=== PATIENT | female | born 1975 | race Caucasian/White ===

== ENCOUNTER 2017-06-14 09:22 | Emergency (ER) | payer MEDICAID ==
[2017-06-14 09:34] VITALS: BMI 25.6
[2017-06-14 09:40] VITALS: PULSE 78
[2017-06-14] MEDS ORDERED: Apap-Butalbital-Caffeine 325-50-40mg Tab PO STA (10:05)
--- NOTE | 2017-06-14 11:13 | CT ---
PROCEDURE: CT HEAD WITHOUT CONTRAST. HISTORY: PERSISTENT RIGHT SIDED HEADACHE COMPARISON: None available. TECHNIQUE: Axial computed tomography images were obtained through the head/brain without intravenous contrast. Radiation dose: Total exam DLP = 859.90 mGy-cm. This CT exam was performed using one or more of the following dose reduction techniques: Automated exposure control, adjustment of the mA and/or kV according to patient size, and/or use of iterative reconstruction technique. FINDINGS: HEMORRHAGE: No intracranial hemorrhage. BRAIN: No mass effect or edema. No atrophy or chronic microvascular ischemic changes. VENTRICLES: Unremarkable. No hydrocephalus. CALVARIUM: Unremarkable. PARANASAL SINUSES: Minimal chronic sphenoid and ethmoid sinusitis. MASTOID AIR CELLS: Unremarkable as visualized. No inflammatory changes. OTHER FINDINGS: None. IMPRESSION: No intracranial mass, hemorrhage or evidence of acute infarct. Minimal chronic paranasal sinusitis.
--- NOTE | 2017-06-14 11:57 | C.PDOC ---
History Of Present Illness 41 year old female presents to the ED for evaluation of right-sided temporal headache which has been intermittent for 1 month. Patient notes symptoms are associated with occasional blurry vision in her right eye. Patient was seen by her PMD and given pain medication (name unknown) from with she has found minimal relief. Patient is scheduled for an appointment with her animal feeder on 06/29 but presents to the ED because her symptoms have persisted. She denies dizziness, facial droop, slurred speech, extremity numbness/weakness, sensory changes, chest pain, palpitations, shortness of breath, fever, neck pain. Time Seen by Provider: 06/14/17 09:39 Chief Complaint (Nursing): Headache History Per: Patient History/Exam Limitations: no limitations Onset/Duration Of Symptoms: Intermittent Episodes (1 month ), Persistent Current Symptoms Are (Timing): Still Present Quality: Aching Additional History Per: Patient Past Medical History Reviewed: Historical Data, Nursing Documentation, Vital Signs Vital Signs: Last Vital Signs Temp 97.9 F 06/14/17 13:02 Pulse 78 06/14/17 13:02 Resp 18 06/14/17 13:02 BP 138/89 06/14/17 13:02 Pulse Ox 100 06/20/17 16:33 - Medical History PMH: No Chronic Diseases, Gastritis Surgical History: No Surg Hx Family History: States: Unknown Family Hx - Social History Hx Alcohol Use: Yes Hx Substance Use: No - Immunization History Hx Tetanus Toxoid Vaccination: No Hx Influenza Vaccination: No Hx Pneumococcal Vaccination: No Review Of Systems Except As Marked, All Systems Reviewed And Found Negative. Constitutional: Negative for: Fever, Chills Cardiovascular: Negative for: Chest Pain, Palpitations Respiratory: Negative for: Shortness of Breath Musculoskeletal: Negative for: Neck Pain Neurological: Positive for: Headache (right-sided, temporal ). Negative for: Weakness, Numbness, Change in Speech, Dizziness Physical Exam - Physical Exam Appears: Well, Non-toxic, No Acute Distress Skin: Normal Color, Warm, Dry Head: Atraumatic, Normacephalic Eye(s): bilateral: Normal Inspection (no nystagmus, no discharge, no erythema), PERRL, EOMI Oral Mucosa: Moist Neck: Supple Chest: Symmetrical, No Deformity, No Tenderness Cardiovascular: Rhythm Regular Respiratory: Normal Breath Sounds, No Rales, No Rhonchi, No Wheezing Gastrointestinal/Abdominal: Normal Exam, Bowel Sounds, Soft, No Tenderness, No Guarding, No Rebound Extremity: Normal ROM, No Pedal Edema, No Calf Tenderness Neurological/Psych: Oriented x3, Normal Speech, Normal Cognition, Normal Cranial Nerves, No Cerebellar Signs, Normal Motor, Normal Sensation, No Dysarthria, No Romberg Gait: Steady ED Course And Treatment O2 Sat by Pulse Oximetry: 100 (on RA) Pulse Ox Interpretation: Normal - CT Scan/US CT Head Other Rad Studies (CT/US): Interpreted By Me, Read By Radiologist, Radiology Report Reviewed CT/US Interpretation: PROCEDURE: CT HEAD WITHOUT CONTRAST. HISTORY: PERSISTENT RIGHT SIDED HEADACHE. COMPARISON: None available. TECHNIQUE: Axial computed tomography images were obtained through the head/brain without intravenous contrast. Radiation dose: Total exam DLP = 859.90 mGy-cm. This CT exam was performed using one or more of the following dose reduction techniques: Automated exposure control, adjustment of the mA and/or kV according to patient size, and/or use of iterative reconstruction technique. FINDINGS: HEMORRHAGE: No intracranial hemorrhage. BRAIN: No mass effect or edema. No atrophy or chronic microvascular ischemic changes. VENTRICLES: Unremarkable. No hydrocephalus. CALVARIUM: Unremarkable. PARANASAL SINUSES: Minimal chronic sphenoid and ethmoid sinusitis. MASTOID AIR CELLS: Unremarkable as visualized. No inflammatory changes. OTHER FINDINGS: None. IMPRESSION: No intracranial mass, hemorrhage or evidence of acute infarct. Minimal chronic paranasal sinusitis. Progress Note: CT Head and Upreg ordered and reviewed. Fioricet PO ordered. Reevaluation Time: 13:00 Reassessment Condition: Improved (On reassessment, patient is resting comfortably, states her headache has resolved and she feels better. CT head (- ) for acute findings, shows chronic sinusitis. Patient denies nasal discharge/ fever. She was given Rx fopr fiorecet, and instructed to follow up with neurology within 1 week, and with ophtho as scheduled. She understands she should return to ED if symptoms worsen.) Disposition Counseled Patient/Family Regarding: Studies Performed, Diagnosis, Need For Followup, Rx Given - Disposition Referrals: Darryl Gillespie MD [Staff Provider] - Disposition: HOME/ ROUTINE Disposition Time: 13:00 Condition: STABLE Additional Instructions: FOLLOW UP WITH EYE DOCTOR SCHEDULED, AND WITH NEUROLOGY WITHIN 1 WEEK USE MEDICATION NEEDED FOR HEADACHE RETURN TO ER IF SYMPTOMS WORSEN Prescriptions: Acetaminophen/Butalbital/Caf [Fioricet] 1 tab PO TID PRN #20 tab PRN Reason: Headache Instructions: Acute Headache (ED) Forms: [employer] (Korean) Print Language: INDONESIAN - Clinical Impression Clinical Impression: acute headache - Scribe Statement The provider has reviewed the documentation as recorded by the Scribe (Rosalva Blanc) Provider Attestation: All medical record entries made by the Scribe were at my direction and personally dictated by me. I have reviewed the chart and agree that the record accurately reflects my personal performance of the history, physical exam, medical decision making, and the department course for this patient. I have also personally directed, reviewed, and agree with the discharge instructions and disposition.
[2017-06-14] MEDS ORDERED: Apap-Butalbital-Caffeine 325-50-40mg Tab ONE (12:10)
[2017-06-14 13:03] VITALS: BP 138/89; RESP 18; TEMP 97.9
[2017-06-20 16:33] VITALS: O2SAT 100
== END 2017-06-14 13:00 | disposition home or self-care (01) ==
LOC: C.ER 09:22
DX: R51 Headache (principal)

== ENCOUNTER 2018-01-30 09:49 | Emergency (ER) | payer MEDICAID ==
[2018-01-30 10:08] VITALS: BMI 29.2
--- NOTE | 2018-01-30 10:32 | C.PDOC ---
History Of Present Illness 42 y/o female presents to ED with c/o left shoulder pain worse with movement since last night. Patient states she normally gets injection for pain but has not received any secondary to insurance issues. Patient admits to cough, contrary to triage patient denies chest pain, sob, nausea, vomiting, sob, recent injury or any other complaints at this time. Time Seen by Provider: 01/30/18 10:10 Chief Complaint (Nursing): Chest Pain History Per: Patient History/Exam Limitations: no limitations Onset/Duration Of Symptoms: Days Current Symptoms Are (Timing): Still Present Quality: "Pain" Past Medical History Reviewed: Historical Data, Nursing Documentation, Vital Signs Vital Signs: Last Vital Signs Temp 97.7 F 01/30/18 12:02 Pulse 87 01/30/18 12:02 Resp 14 01/30/18 12:02 BP 126/76 01/30/18 12:02 Pulse Ox 100 01/30/18 12:02 - Medical History PMH: Gastritis Surgical History: No Surg Hx Family History: States: No Known Family Hx - Social History Hx Alcohol Use: Yes Hx Substance Use: No - Immunization History Hx Tetanus Toxoid Vaccination: No Hx Influenza Vaccination: No Hx Pneumococcal Vaccination: No Review Of Systems Cardiovascular: Negative for: Chest Pain Respiratory: Positive for: Cough. Negative for: Shortness of Breath Gastrointestinal: Negative for: Nausea, Vomiting Musculoskeletal: Positive for: Shoulder Pain Skin: Negative for: Rash, Bruising Physical Exam - Physical Exam Appears: Non-toxic, No Acute Distress Skin: Warm, Dry, No Rash Head: Atraumatic, Normacephalic Eye(s): bilateral: Normal Inspection Oral Mucosa: Moist Neck: Normal ROM, Supple Cardiovascular: Rhythm Regular Respiratory: Normal Breath Sounds, No Rales, No Rhonchi, No Wheezing Extremity: Tenderness (reproducible left shoulder ), Capillary Refill (<2 seconds), No Deformity Neurological/Psych: Oriented x3, Normal Speech, Normal Motor, Normal Sensation ED Course And Treatment - Laboratory Results Result Diagrams: 01/30/18 10:54 01/30/18 10:54 Lab Interpretation: Normal Urine POC: Negative ECG: Interpreted By Me ECG Rhythm: Sinus Rhythm ECG Interpretation: Normal Rate From EC O2 Sat by Pulse Oximetry: 99 (RA) Pulse Ox Interpretation: Normal - Radiology CXR: Interpreted by Me CXR Interpretation: Yes: No Acute Disease Progress Note: Blood work, CXR ordered. Toradol administered. On re-evaluation lungs clear. Heart score 0 Reassessment Condition: Improved Disposition Counseled Patient/Family Regarding: Studies Performed, Diagnosis, Need For Followup, Rx Given - Disposition Referrals: [facility] [Outside] [facility] [Outside] [facility] [place] [Outside] Disposition: HOME/ ROUTINE Disposition Time: 12:00 Condition: STABLE Additional Instructions: Follow up at clinic for further evaluation Return to ED if any increase symptoms Prescriptions: Naproxen [Naprosyn] 1 tab PO BID PRN #25 tab PRN Reason: Pain Instructions: Shoulder Sprain Forms: [employer] (Belarusian) - POA Present On Arrival: None - Clinical Impression Clinical Impression: Chest pain, Sprain of shoulder, left - PA / BRANDING MACHINE TENDER / Resident Statement MD/DO has reviewed & agrees with the documentation as recorded. - Scribe Statement The provider has reviewed the documentation as recorded by the Rosalio Leroy All medical record entries made by the Rosalio were at my direction and personally dictated by me. I have reviewed the chart and agree that the record accurately reflects my personal performance of the history, physical exam, medical decision making, and the department course for this patient. I have also personally directed, reviewed, and agree with the discharge instructions and disposition.
[2018-01-30 11:00] LABS: BASO % 0.4 % (0.0-2.0); EOS # 0.2 K/uL (0.0-0.7); EOS % 2.7 % (0.0-4.0); HEMOGLOBIN 10.7 g/dL (11.0-16.0); LYMPH % 35.2 % (20.0-40.0); MEAN CELL VOLUME 91.8 fL (81.0-99.0); MEAN CORPUSCULAR HEMOGLOBIN 31.4 pg (27.0-31.0); MEAN CORPUSCULAR HGB CONC 34.2 g/dL (33.0-37.0); MEAN PLATELET VOLUME 9.2 fL (7.2-11.7); MONO # 0.5 K/uL (0.0-0.8); MONO % 5.7 % (0.0-10.0); NEUT # 4.7 K/uL (1.8-7.0); NRBC % 0.1 % (0.0-2.0); RBC 3.39 Mil/uL (3.80-5.20); RED CELL DISTRIBUTION WIDTH 15.8 % (11.5-14.5); WHITE BLOOD COUNT 8.5 K/uL (4.8-10.8)
[2018-01-30 11:15] LABS: ALB/GLOB RATIO 1.4 (1.0-2.1); ALBUMIN 4.1 g/dL (3.5-5.0); ALT/SGPT 54 U/L (9-52); AST/SGOT 38 U/L (14-36); BLOOD UREA NITROGEN 10 mg/dL (7-17); GFR AFRICAN-AMERICAN > 60; GFR NON-AFRICAN AMERICAN > 60
--- NOTE | 2018-01-30 11:19 | RAD ---
Date of service: 01/30/2018 HISTORY: SOB COMPARISON: 01/21/2016 TECHNIQUE: Chest PA and lateral FINDINGS: LUNGS: No active pulmonary disease. PLEURA: No significant pleural effusion identified. No pneumothorax apparent. CARDIOVASCULAR: Normal. OSSEOUS STRUCTURES: No significant abnormalities. VISUALIZED UPPER ABDOMEN: Normal. OTHER FINDINGS: None. IMPRESSION: No active disease.
[2018-01-30 11:28] LABS: HCG,QUALITATIVE URINE NEGATIVE (NEGATIVE)
[2018-01-30 11:42] LABS: SQUAMOUS EPITHIAL 13 /hpf (0-5); URINE BILIRUBIN NEGATIVE (NEGATIVE); URINE BLOOD 2+ (NEGATIVE); URINE CLARITY Hazy (Clear); URINE COLOR Yellow (YELLOW); URINE GLUCOSE (UA) NORMAL (Normal); URINE LEUKOCYTE ESTERASE NEG Leu/uL (Negative); URINE PROTEIN NEGATIVE (NEGATIVE); URINE UROBILINOGEN NORMAL mg/dL (0.2-1.0)
[2018-01-30 12:06] VITALS: BP 126/76; PULSE 87; RESP 14; TEMP 97.7
[2018-01-30 16:24] VITALS: O2SAT 99
--- NOTE | 2018-01-30 17:20 | CARD ---
APPROVED REPORT Date of service: 01/30/2018 EKG Measurement Heart [id number] <Conclusion> Normal sinus rhythm Normal ECG
== END 2018-01-30 12:11 | disposition home or self-care (01) ==
LOC: C.ER 09:49
DX: S43.402A Unspecified sprain of left shoulder joint, initial encounter (principal); X58.XXXA Exposure to other specified factors, initial encounter; R07.9 Chest pain, unspecified
CPT/HCPCS: 71046; 80053; 81001; 84484; 84703; 85025; 93005; 96374; 99285; J1885

== ENCOUNTER 2018-04-29 09:06 | Emergency (ER) | payer MEDICAID ==
[2018-04-29 09:06] VITALS: BMI 29.2
[2018-04-29 09:22] VITALS: BP 116/82; PULSE 78; RESP 18; TEMP 97.9; O2SAT 99
[2018-04-29] MEDS ORDERED: Naproxen 550 mg Tab PO STA (09:37)
--- NOTE | 2018-04-29 09:50 | C.PDOC ---
History Of Present Illness 42 year old female presents to the ED for evaluation of bilateral frontal shoulder pain for the last week. 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 She notes the pain is worse with shoulder movement. Patient also reports chronic epigastric pain and notes she will see her PMD for the symptoms. Denies sensory changes in the arms, fever, direct trauma, and any other associated symptoms. Time Seen by Provider: 04/29/18 09:32 Chief Complaint (Nursing): Upper Extremity Problem/Injury History Per: Patient History/Exam Limitations: no limitations Onset/Duration Of Symptoms: Days Current Symptoms Are (Timing): Still Present Past Medical History Reviewed: Historical Data, Nursing Documentation, Vital Signs Vital Signs: Last Vital Signs Temp 97.9 F 04/29/18 09:19 Pulse 78 04/29/18 09:19 Resp 18 04/29/18 09:19 BP 116/82 04/29/18 09:19 Pulse Ox 99 04/29/18 09:19 - Medical History PMH: Gastritis Family History: States: Unknown Family Hx - Social History Hx Alcohol Use: Yes (denies) Hx Substance Use: No - Immunization History Hx Tetanus Toxoid Vaccination: No Hx Influenza Vaccination: No Hx Pneumococcal Vaccination: No Review Of Systems Constitutional: Negative for: Fever, Other (direct trauma. ) Gastrointestinal: Positive for: Other (chronic epigastric pain.) Musculoskeletal: Positive for: Shoulder Pain (bilateral frontal shoulder pain.) Neurological: Negative for: Weakness, Numbness, Incoordination Physical Exam - Physical Exam Appears: Well, Other (comfortable. ) Skin: Normal Color, Warm, Dry Head: Atraumatic, Normacephalic Cardiovascular: Rhythm Regular, Murmur Respiratory: Normal Breath Sounds, No Rales, No Rhonchi, No Wheezing Gastrointestinal/Abdominal: Normal Exam, No Tenderness Extremity: Normal ROM (x4), Tenderness (mild tenderness to palpation to the bilateral anterior shoulders.), Capillary Refill (less than 2 seconds. ), No D eformity, Other Pulses: Left Radial: Normal, Right Radial: Normal Neurological/Psych: Oriented x3, Normal Speech, Normal Motor, Normal Sensation, Normal Reflexes Gait: Steady ED Course And Treatment O2 Sat by Pulse Oximetry: 99 (RA) Pulse Ox Interpretation: Normal Progress Note: Urine HCG. Given Naproxen and Cyclobenzaprine. Patient stable for discharge home. Prescribed Cyclobenzaprine and Lidocerm patch. Disposition Counseled Patient/Family Regarding: Studies Performed, Diagnosis, Need For Followup, Rx Given - Disposition Referrals: Rosemarie De La Paz MD [Medical Doctor] - Disposition: HOME/ ROUTINE Disposition Time: 09:55 Condition: STABLE Additional Instructions: FOLLOW UP WITH YOUR DOCTOR IN 1-2 DAYS USE MEDICATIONS NEEDED RETURN TO EMERGENCY ROOM IF SYMPTOMS WORSEN SEGUIR CON ALVAREZ MDICO EN 1-2 ZAIDI UTILICE MEDICAMENTOS JORGE SE NECESITE VUELVA A LA DONNA DE EMERGENCIA SI LOS SNTOMAS SE MARIE PROBLEMAS Prescriptions: Diazepam [Valium] 2 mg PO BID PRN #15 tablet PRN Reason: musle spasm Lidocaine 5% [Lidoderm] 1 patch TOP DAILY PRN #15 patch PRN Reason: pain Naproxen 375 mg PO BID PRN #20 tablet PRN Reason: pain Instructions: Tendonitis (DC) Forms: [employer] (Thai) Print Language: YORUBA - POA Present On Arrival: None - Clinical Impression Clinical Impression: Shoulder tendonitis - Scribe Statement The provider has reviewed the documentation as recorded by the Scribe (Elinor Lawson) Provider Attestation: All medical record entries made by the Scribe were at my direction and personally dictated by me. I have reviewed the chart and agree that the record accurately reflects my personal performance of the history, physical exam, medical decision making, and the department course for this patient. I have also personally directed, reviewed, and agree with the discharge instructions and disposition.
[2018-04-29] MEDS ORDERED: Naproxen 550 mg Tab PO ONE (09:55)
== END 2018-04-29 10:08 | disposition home or self-care (01) ==
LOC: C.ER 09:06
DX: M75.90 Shoulder lesion, unspecified, unspecified shoulder (principal)

== ENCOUNTER 2018-06-19 10:57 | Emergency (ER) | payer MEDICAID ==
[2018-06-19 10:57] VITALS: BMI 29.2
[2018-06-19 11:13] VITALS: BP 129/80; PULSE 76; RESP 16; TEMP 97.4; O2SAT 100
--- NOTE | 2018-06-19 12:57 | CT ---
Date of service: 06/19/2018 PROCEDURE: CT HEAD WITHOUT CONTRAST. HISTORY: HEADACHE COMPARISON: Comparison made with prior CT scan brain 06/14/2017... TECHNIQUE: Axial computed tomography images were obtained through the head/brain without intravenous contrast. Radiation dose: Total exam DLP = 998.34 mGy-cm. This CT exam was performed using one or more of the following dose reduction techniques: Automated exposure control, adjustment of the mA and/or kV according to patient size, and/or use of iterative reconstruction technique. FINDINGS: HEMORRHAGE: No acute parenchymal, subarachnoid or extra-axial hemorrhage. BRAIN: Minor generalized volume loss. No evidence of large acute infarct. No obvious parenchymal nor extra-axial mass or collection seen on this noncontrast exam. VENTRICLES: No obstructive hydrocephalus. CALVARIUM: Calvarium intact.. PARANASAL SINUSES: Un minimal mucosal thickening seen within the left chamber sphenoid sinus... MASTOID AIR CELLS: Unremarkable as visualized. No inflammatory changes. OTHER FINDINGS: None. IMPRESSION: No acute intracranial hemorrhage. Mild generalized volume loss.
--- NOTE | 2018-06-19 13:46 | C.PDOC ---
History Of Present Illness 42 year old female presents to the ED for evaluation of headache which began 4 days ago. Patient states her pain is around her occipital region, non-radiating, and associated with nausea. Patient denies fever, chills, vision changes, vomiting, extremity numbness/weakness. Time Seen by Provider: 06/19/18 11:34 Chief Complaint (Nursing): Headache History Per: Patient History/Exam Limitations: no limitations Onset/Duration Of Symptoms: Days (4) Current Symptoms Are (Timing): Still Present Quality: Aching Associated Symptoms: Nausea. denies: Blurred Vision, Vomiting, Extremity Weakness Additional History Per: Patient Past Medical History Reviewed: Historical Data, Nursing Documentation, Vital Signs Vital Signs: Last Vital Signs Temp 97.4 F L 06/19/18 11:12 Pulse 76 06/19/18 11:12 Resp 16 06/19/18 11:12 BP 129/80 06/19/18 11:12 Pulse Ox 100 06/19/18 11:12 - Medical History PMH: Gastritis Surgical History: No Surg Hx Family History: States: Unknown Family Hx - Social History Hx Alcohol Use: Yes (denies) Hx Substance Use: No - Immunization History Hx Tetanus Toxoid Vaccination: No Hx Influenza Vaccination: No Hx Pneumococcal Vaccination: No Review Of Systems Constitutional: Negative for: Fever, Chills Eyes: Negative for: Vision Change Gastrointestinal: Positive for: Nausea. Negative for: Vomiting Neurological: Positive for: Headache. Negative for: Weakness, Numbness Physical Exam - Physical Exam Appears: Non-toxic, No Acute Distress Skin: Normal Color, Warm, No Rash Head: Atraumatic, Normacephalic, Other (No temporal artery tenderness\) Eye(s): bilateral: Normal Inspection Ear(s): Bilateral: Normal Nose: Normal, No Discharge Oral Mucosa: Moist Throat: Normal, No Erythema, No Exudate Neck: Normal ROM, Supple Chest: Symmetrical, No Tenderness Cardiovascular: Rhythm Regular, No Friction Rub Extremity: Normal ROM, No Swelling Neurological/Psych: Oriented x3, Normal Speech, Normal Cognition Gait: Steady ED Course And Treatment O2 Sat by Pulse Oximetry: 100 (on RA) Pulse Ox Interpretation: Normal - CT Scan/US CT Head Other Rad Studies (CT/US): Read By Radiologist, Radiology Report Reviewed CT/US Interpretation: Date of service: 06/19/2018. PROCEDURE: CT HEAD WITHOUT CONTRAST. HISTORY: HEADACHE. COMPARISON: Comparison made with prior CT scan brain 06/14/2017... TECHNIQUE: Axial computed tomography images were obtained through the head/brain without intravenous contrast. Radiation dose: Total exam DLP = 998.34 mGy-cm. This CT exam was performed using one or more of the following dose reduction techniques: Automated exposure control, adjustment of the mA and/or kV according to patient size, and/or use of iterative reconstruction technique. FINDINGS: HEMORRHAGE: No acute parenchymal, subarachnoid or extra-axial hemorrhage. BRAIN: Minor generalized volume loss. No evidence of large acute infarct. No obvious parenchymal nor extra-axial mass or collection seen on this noncontrast exam. VENTRICLES: No obstructive hydrocephalus. CALVARIUM: Calvarium intact.. PARANASAL SINUSES: Un minimal mucosal thickening seen within the left chamber sphenoid sinus... MASTOID AIR CELLS: Unremarkable as visualized. No inflammatory changes. OTHER FINDINGS: None. IMPRESSION: No acute intracranial hemorrhage. Mild generalized volume loss. Medical Decision Making Medical Decision Making: Progress: As per patient's request, head CT was ordered and reviewed. Reglan PO and Reglan PO administered. Disposition - Disposition Referrals: [facility] [Outside] Disposition: HOME/ ROUTINE Disposition Time: 13:44 Condition: STABLE Additional Instructions: Follow up with the medical doctor within 1-2 days. Return if worsened. Prescriptions: Acetaminophen/Butalbital/Caf [Fioricet] 1 tab PO TID PRN #20 tab PRN Reason: Headache Metoclopramide [Reglan] 1 tab PO TID PRN #25 tab PRN Reason: Nausea/Vomiting Instructions: Headache, Adult (DC) Forms: [employer] (Greenlandic) - Clinical Impression Clinical Impression: Headache - PA / EYE SPECIALIST / Resident Statement MD/DO has reviewed & agrees with the documentation as recorded. - Scribe Statement The provider has reviewed the documentation as recorded by the Scribe (Rosalva Blanc) All medical record entries made by the Scribe were at my direction and personally dictated by me. I have reviewed the chart and agree that the record accurately reflects my personal performance of the history, physical exam, medical decision making, and the department course for this patient. I have also personally directed, reviewed, and agree with the discharge instructions and disposition.
== END 2018-06-19 13:51 | disposition home or self-care (01) ==
LOC: C.ER 10:57
DX: R51 Headache (principal)
CPT/HCPCS: 70450; 96372; 99284; J1885

== ENCOUNTER 2018-08-21 10:58 | Emergency (ER) | payer MEDICAID ==
[2018-08-21 10:58] VITALS: BMI 29.2
[2018-08-21 11:13] VITALS: RESP 18
[2018-08-21] MEDS ORDERED: Sodium Chloride 0.9% 1,000 ML IV ONE (11:20)
[2018-08-21 11:54] LABS: BASO % 0.5 % (0.0-2.0); EOS # 0.2 K/uL (0.0-0.7); EOS % 2.9 % (0.0-4.0); HEMOGLOBIN 10.9 g/dL (11.0-16.0); LYMPH # 2.6 K/uL (1.0-4.3); LYMPH % 31.6 % (20.0-40.0); MEAN CELL VOLUME 91.3 fL (81.0-99.0); MONO # 0.4 K/uL (0.0-0.8); MONO % 4.9 % (0.0-10.0); NEUT % 60.1 % (50.0-75.0); RBC 3.5 Mil/uL (3.80-5.20); RED CELL DISTRIBUTION WIDTH 17.5 % (11.5-14.5); WHITE BLOOD COUNT 8.3 K/uL (4.8-10.8)
[2018-08-21 12:11] LABS: ALB/GLOB RATIO 1.6 (1.0-2.1); ALBUMIN 4.8 g/dL (3.5-5.0); ALT/SGPT 46 U/L (9-52); AST/SGOT 37 U/L (14-36); BLOOD UREA NITROGEN 13 mg/dL (7-17); CALCIUM 9.4 mg/dl (8.6-10.4); GFR NON-AFRICAN AMERICAN > 60; LIPASE 55 U/L (23-300)
--- NOTE | 2018-08-21 12:15 | C.PDOC ---
History Of Present Illness 42 y/o female presents to the ER complaining of right sided abdominal and flank pain which has been present since yesterday. Patient states that she has associated nausea, vomiting, and dysuria. She denies history of similar prior e pisodes, or prior kidney stones/renal colis. Denies having fever,chills, vaginal bleeding, vaginal discharge. <Marya Houston - Last Filed: 08/21/18 13:19> History Per: Patient History/Exam Limitations: no limitations Onset/Duration Of Symptoms: Days Current Symptoms Are (Timing): Still Present Severity: Moderate Quality Of Discomfort: "Pain" Associated Symptoms: Nausea, Vomiting, Urinary Symptoms <Marya Houston - Last Filed: 08/21/18 13:19> <Yesica Phan - Last Filed: 08/21/18 14:18> Time Seen by Provider: 08/21/18 11:19 Chief Complaint (Nursing): Abdominal Pain Past Medical History Reviewed: Historical Data, Nursing Documentation, Vital Signs Vital Signs: Last Vital Signs Temp 97.9 F 08/21/18 11:10 Pulse 69 08/21/18 11:10 Resp 18 08/21/18 11:10 BP 180/99 H 08/21/18 11:10 Pulse Ox 98 08/21/18 11:10 - Medical History PMH: Gastritis Other Surgeries: Hx of surgeries Family History: States: No Known Family Hx - Social History Hx Alcohol Use: Yes (denies) Hx Substance Use: No - Immunization History Hx Tetanus Toxoid Vaccination: No Hx Influenza Vaccination: No Hx Pneumococcal Vaccination: No <Marya Houston - Last Filed: 08/21/18 13:19> Vital Signs: Last Vital Signs Temp 97.9 F 08/21/18 11:10 Pulse 69 08/21/18 11:10 Resp 18 08/21/18 11:10 BP 159/86 H 08/21/18 12:22 Pulse Ox 98 08/21/18 13:19 <Yesica Phan - Last Filed: 08/21/18 14:18> Review Of Systems Except As Marked, All Systems Reviewed And Found Negative. Constitutional: Negative for: Fever, Chills Gastrointestinal: Positive for: Nausea, Vomiting, Abdominal Pain. Negative for: Diarrhea Genitourinary: Positive for: Dysuria. Negative for: Hematuria, Vaginal Discharge, Vaginal Bleeding Musculoskeletal: Positive for: Other (flank pain) <Marya Houston - Last Filed: 08/21/18 13:19> Physical Exam - Physical Exam Appears: Non-toxic, In Acute Distress, Other (moderate distress, tearful) Skin: Normal Color, Warm, Dry Head: Normacephalic Eye(s): bilateral: Normal Inspection Oral Mucosa: Moist Neck: Supple Cardiovascular: Rhythm Regular Respiratory: Normal Breath Sounds, No Rales, No Rhonchi, No Wheezing Gastrointestinal/Abdominal: Bowel Sounds, Soft, Tenderness (right sided periumbilical tenderness), No Guarding, No Rebound, Other ((-) Dickerson's, (-) McBurney's) Back: CVA Tenderness (right sided CVA tenderness) Neurological/Psych: Oriented x3 <Marya Houston - Last Filed: 08/21/18 13:19> ED Course And Treatment - Laboratory Results Result Diagrams: 08/21/18 11:43 08/21/18 11:43 Lab Results: Total Bilirubin 0.4 mg/dL (0.2-1.3) 08/21/18 11:43 AST 37 U/L (14-36) H 08/21/18 11:43 ALT 46 U/L (9-52) 08/21/18 11:43 Alkaline Phosphatase 82 U/L (38-126) 08/21/18 11:43 Total Protein 7.8 g/dL (6.3-8.3) 08/21/18 11:43 Albumin 4.8 g/dL (3.5-5.0) 08/21/18 11:43 Globulin 3.1 gm/dL (2.2-3.9) 08/21/18 11:43 Albumin/Globulin Ratio 1.6 (1.0-2.1) 08/21/18 11:43 Lipase 55 U/L (23-300) 08/21/18 11:43 O2 Sat by Pulse Oximetry: 98 (RA) Pulse Ox Interpretation: Normal Progress Note: Blood work, UA, Upreg, CT abd/pelvus ordered and reviewed. Patient given IV Ns bolus, IV toradol, IV zofran. Patient continued to have pain - IV morphine given. <Marya Houston - Last Filed: 08/21/18 13:19> - Laboratory Results Result Diagrams: 08/21/18 11:43 08/21/18 11:43 Lab Results: Total Bilirubin 0.4 mg/dL (0.2-1.3) 08/21/18 11:43 AST 37 U/L (14-36) H 08/21/18 11:43 ALT 46 U/L (9-52) 08/21/18 11:43 Alkaline Phosphatase 82 U/L (38-126) 08/21/18 11:43 Total Protein 7.8 g/dL (6.3-8.3) 08/21/18 11:43 Albumin 4.8 g/dL (3.5-5.0) 08/21/18 11:43 Globulin 3.1 gm/dL (2.2-3.9) 08/21/18 11:43 Albumin/Globulin Ratio 1.6 (1.0-2.1) 08/21/18 11:43 Lipase 55 U/L (23-300) 08/21/18 11:43 Urine Color Yellow (YELLOW) 08/21/18 11:43 Urine Clarity Hazy (Clear) 08/21/18 11:43 Urine pH 5.5 (5.0-8.0) 08/21/18 11:43 Ur Specific [place] 1.030 (1.003-1.030) 08/21/18 11:43 Urine Protein 100 mg/dL (NEGATIVE) 08/21/18 11:43 Urine Glucose (UA) Negative mg/dL (Normal) 08/21/18 11:43 Urine Ketones Trace mg/dL (NEGATIVE) 08/21/18 11:43 Urine Blood Large (NEGATIVE) 08/21/18 11:43 Urine Nitrate Negative (NEGATIVE) 08/21/18 11:43 Urine Bilirubin Small (NEGATIVE) 08/21/18 11:43 Urine Urobilinogen 0.2 mg/dL (0.2-1.0) 08/21/18 11:43 Ur Leukocyte Esterase Negative Denzel/uL (Negative) 08/21/18 11:43 Urine WBC (Auto) 1 /hpf (0-5) 08/21/18 11:43 Urine RBC (Auto) 50 /hpf (0-3) H 08/21/18 11:43 Ur Squamous Epith Cells 1 /hpf (0-5) 08/21/18 11:43 Urine HCG, Qual Negative (NEGATIVE) 08/21/18 11:43 Urine HCG, Qual Negative (NEGATIVE) 08/21/18 11:43 Reevaluation Time: 14:17 Reassessment Condition: Improved (FEELS BETTER WISHES DC) <Yesica Phan - Last Filed: 08/21/18 14:18> Disposition Counseled Patient/Family Regarding: Studies Performed, Diagnosis, Need For Fo llowup, Rx Given - Disposition Disposition Time: 13:15 <Marya Houston - Last Filed: 08/21/18 13:19> - Disposition Disposition Time: 14:17 <SylvesterYesica - Last Filed: 08/21/18 14:18> - Disposition Referrals: Andre Senior MD [Staff Provider] - Disposition: HOME/ ROUTINE Condition: IMPROVED Additional Instructions: FOLLOW UP WITH UROLOGY WITHIN 1 WEEK DRINK PLENTY OF FLUIDS USE MEDICATIONS DIRECTED RETURN TO ER IF SYMPTOMS WORSEN Prescriptions: Hydrocodone/Acetaminophen [Hydrocodone-Acetamin 5-325 mg] 1 each PO Q6 PRN #15 tablet PRN Reason: PAIN Tamsulosin [Flomax] 0.4 mg PO DAILY #5 cap Instructions: Kidney Stones (DC), Renal Colic (DC) Forms: [employer] (Turkish) Print Language: MONGOLIAN - Clinical Impression Clinical Impression: Kidney stone on right side, Renal colic on right side - Scribe Statement The provider has reviewed the documentation as recorded by the Rosalio Hoff Provider Attestation: All medical record entries made by the Leslyibe were at my direction and personally dictated by me. I have reviewed the chart and agree that the record accurately reflects my personal performance of the history, physical exam, medical decision making, and the department course for this patient. I have also personally directed, reviewed, and agree with the discharge instructions and disposition. <Marya Houston - Last Filed: 08/21/18 13:19>
[2018-08-21 12:19] LABS: HCG,QUALITATIVE URINE NEGATIVE (NEGATIVE)
[2018-08-21 12:20] LABS: URINE BILIRUBIN SMALL (NEGATIVE); URINE CLARITY Hazy (Clear); URINE GLUCOSE (UA) NEGATIVE (Normal)
[2018-08-21] MEDS ORDERED: Morphine 4 MG/ML VIAL ONE (12:20)
[2018-08-21 12:21] LABS: URINE BLOOD LARGE (NEGATIVE)
[2018-08-21 12:23] LABS: PH,URINE 5.5 (5.0-8.0); SQUAMOUS EPITHIAL 1 /hpf (0-5); URINE LEUKOCYTE ESTERASE NEGATIVE Leu/uL (Negative); URINE PROTEIN 100 mg/dL (NEGATIVE); URINE UROBILINOGEN 0.2 mg/dL (0.2-1.0)
[2018-08-21 12:25] LABS: URINE COLOR YELLOW (YELLOW)
--- NOTE | 2018-08-21 12:58 | CT ---
PROCEDURE: CT Abdomen and Pelvis without Oral or IV contrast. HISTORY: right flank and rlq pain, r/o kidney stone COMPARISON: None available. TECHNIQUE: Contiguous axial images of the abdomen and pelvis. No oral or IV contrast administered. Coronal and Sagittal reformats generated and reviewed. Radiation dose: Total exam DLP = 539.96 mGy-cm. This CT exam was performed using one or more of the following dose reduction techniques: Automated exposure control, adjustment of the mA and/or kV according to patient size, and/or use of iterative reconstruction technique. FINDINGS: There is limited evaluation of the solid organs without the administration of IV contrast. LOWER THORAX: No visible consolidation, pleural effusion, or pneumothorax. LIVER: Hepatomegaly. Hypoattenuation of the liver compatible with hepatic steatosis. GALLBLADDER AND BILE DUCTS: Unremarkable unenhanced appearance. PANCREAS: Unremarkable unenhanced appearance. SPLEEN: Unremarkable unenhanced appearance. ADRENALS: Unremarkable unenhanced appearance. KIDNEYS AND URETERS: 5 mm calculus at the right UVJ with mild hydroureteronephrosis evident. Additional bilateral nonobstructing renal calculi. No left-sided hydronephrosis. Urinary bladder under distension. BLADDER: See above. REPRODUCTIVE: Uterus is present. APPENDIX: The appendix appears within normal limits of caliber. No secondary signs of acute appendicitis. BOWEL: The stomach is nondistended. Lack of oral contrast limits evaluation for bowel pathology. The bowel loops appear within normal limits of caliber without evidence of intestinal obstruction. PERITONEUM: No significant free fluid. No definite free air. LYMPH NODES: No bulky lymphadenopathy identified. VASCULATURE: No atherosclerotic calcifications of the aorta identified. No aortic aneurysm. BONES: Degenerative changes of the spine. OTHER FINDINGS: None. IMPRESSION: 5 mm calculus at the right UVJ with mild hydroureteronephrosis. Additional bilateral nonobstructing renal calculi. No left-sided hydronephrosis. Hepatomegaly. Hypoattenuation of the liver compatible with hepatic steatosis.
[2018-08-21] MEDS ORDERED: SODIUM CHLORIDE 0.9% IV STA (13:18)
[2018-08-21] MEDS ORDERED: LIDOCAINE IV STA (13:18)
[2018-08-21 14:26] VITALS: BP 154/88; PULSE 63; TEMP 98.1; O2SAT 100
== END 2018-08-21 14:44 | disposition home or self-care (01) ==
LOC: C.ER 10:58
DX: N20.0 Calculus of kidney (principal)
CPT/HCPCS: 74176; 80053; 81001; 81025; 83690; 84703; 85025; 87086; 96361; 96374; 96375; 99285; J1885; J2001; J2270; J2405; J7030

== ENCOUNTER 2018-10-03 08:36 | Emergency (ER) | payer MEDICAID ==
[2018-10-03 08:36] VITALS: BMI 29.2
[2018-10-03 09:00] VITALS: BP 115/77; PULSE 76; RESP 18; TEMP 97.8; O2SAT 96
--- NOTE | 2018-10-03 09:12 | C.PDOC ---
History Of Present Illness 42 year old female presents to ED with complaint of right sided headache behind the right eye for the past 5 months. Patient has a PMHx of migraines. Patient has presented to the ED multiple times with similar complaints. Patient also complains of nasal congestion. She has been taking no nasal decongestants. Patient has been referred to neurology and prescribed medications with no relief. Patient denies fever, chills, runny nose, nausea, vomiting, and diarrhea. Time Seen by Provider: 10/03/18 09:05 Chief Complaint (Nursing): Headache History Per: Patient History/Exam Limitations: no limitations Onset/Duration Of Symptoms: Other (5 months) Current Symptoms Are (Timing): Still Present Quality: Aching Associated Symptoms: denies: Nausea, Vomiting Past Medical History Reviewed: Historical Data, Nursing Documentation, Vital Signs Vital Signs: Last Vital Signs Temp 97.8 F 10/03/18 08:56 Pulse 76 10/03/18 08:56 Resp 18 10/03/18 08:56 BP 115/77 10/03/18 08:56 Pulse Ox 96 10/03/18 08:56 - Medical History PMH: Gastritis, HTN, Migraine Surgical History: No Surg Hx Family History: States: Unknown Family Hx - Social History Hx Alcohol Use: Yes (denies) Hx Substance Use: No - Immunization History Hx Tetanus Toxoid Vaccination: No Hx Influenza Vaccination: No Hx Pneumococcal Vaccination: No Review Of Systems Constitutional: Negative for: Fever, Chills, Weakness ENT: Positive for: Nose Congestion Gastrointestinal: Negative for: Nausea, Vomiting, Diarrhea Neurological: Negative for: Weakness, Numbness, Dizziness Physical Exam - Physical Exam Appears: Non-toxic, Other (minor distress) Skin: Normal Color, Warm, Dry Head: Atraumatic, Normacephalic Eye(s): bilateral: Other (no photophobia) Nose: Other (increased nasal passage inflammation with the right greater than the left) Oral Mucosa: Moist Throat: Normal, No Erythema, No Exudate Neck: Normal ROM, Supple Chest: Symmetrical, No Deformity Cardiovascular: Rhythm Regular, No Murmur Respiratory: No Accessory Muscle Use, No Rales, No Rhonchi, No Wheezing Neurological/Psych: Oriented x3, Normal Speech, Normal Cognition ED Course And Treatment O2 Sat by Pulse Oximetry: 96 (in RA) Progress Note: Patient given Motrin PO and Sudafed PO. Re-evaluation. Patient feels better. Discussed results and plan with patient who expresses understanding. All questions answered and there is agreement with the plan to discharge home with instructions. Patient stable for discharge. Return if symptoms persist or worsen. Medical Decision Making Medical Decision Making: sinus headache and NOT migraine h/o MARINELLI's for many years with multiple ED visits for same and no improvement with Neuro referral for Magnesium therapy for "migraine" positional, unilateral, behind R eye, no photophobia/lacrimation, ++ nasal passage inflammation to support Disposition Doctor Will See Patient In The: Office Counseled Patient/Family Regarding: Studies Performed, Diagnosis - Disposition Referrals: Rosemarie De La Paz MD [Medical Doctor] - Disposition: HOME/ ROUTINE Disposition Time: 09:12 Condition: GOOD Additional Instructions: pseudafed 30 mg every 6 hours or as needed Motrin/Advil 400-600 mg every 6 hours as needed any Cold medicine which says "Sinus" ie, Tylenol "Cold and Sinus" will contain a nasal decongestant Flonase spray 1 spray to each nostril every 12 hours until Summertime. f/u with Dr. De La Paz as needed. Instructions: Sinus Headache (DC) Forms: [employer] (Irish) - Clinical Impression Clinical Impression: Headache - Scribe Statement The provider has reviewed the documentation as recorded by the Scribe (Janie Ponce) All medical record entries made by the Scribe were at my direction and personally dictated by me. I have reviewed the chart and agree that the record accurately reflects my personal performance of the history, physical exam, medical decision making, and the department course for this patient. I have also personally directed, reviewed, and agree with the discharge instructions and disposition.
== END 2018-10-03 09:23 | disposition home or self-care (01) ==
LOC: C.ER 08:36
DX: R51 Headache (principal)

== ENCOUNTER 2018-10-09 10:05 | Outpatient (CLI) | payer MEDICAID | END 2018-10-09 10:06 | disposition home or self-care (01) | LOC: C.RADH 10:05 ==

== ENCOUNTER 2018-10-10 10:16 | Emergency (ER) | payer MEDICAID ==
[2018-10-10 10:16] VITALS: BMI 29.2
[2018-10-10 10:28] VITALS: TEMP 97.9; O2SAT 99
[2018-10-10] MEDS ORDERED: Sodium Chloride 0.9% 1,000 ML ONE (10:37)
[2018-10-10] MEDS ORDERED: Sodium Chloride 0.9% 1,000 ML IV ONE (10:50)
[2018-10-10] MEDS ORDERED: Morphine 4 MG/ML VIAL IV ONE (10:54)
[2018-10-10 11:10] LABS: BASO # 0.1 K/uL (0.0-0.2); BASO % 0.8 % (0.0-2.0); EOS # 0.3 K/uL (0.0-0.7); EOS % 4.3 % (0.0-4.0); HEMOGLOBIN 10.4 g/dL (11.0-16.0); LYMPH # 3.1 K/uL (1.0-4.3); LYMPH % 39.4 % (20.0-40.0); MEAN CORPUSCULAR HEMOGLOBIN 30.7 pg (27.0-31.0); MEAN CORPUSCULAR HGB CONC 33.8 g/dL (33.0-37.0); MEAN PLATELET VOLUME 9.1 fL (7.2-11.7); MONO # 0.4 K/uL (0.0-0.8); MONO % 5.2 % (0.0-10.0); NEUT % 50.3 % (50.0-75.0); NRBC % 0.1 % (0.0-2.0); RBC 3.4 Mil/uL (3.80-5.20); RED CELL DISTRIBUTION WIDTH 17.2 % (11.5-14.5); WHITE BLOOD COUNT 7.9 K/uL (4.8-10.8)
[2018-10-10 11:13] VITALS: RESP 16
[2018-10-10 11:23] VITALS: BP 106/68; PULSE 60
--- NOTE | 2018-10-10 11:24 | C.PDOC ---
History Of Present Illness 42 year old female presents to ED with complaint of left flank pain that began this morning when she woke up. Patient has a PMHx of renal colic with 5mm right UVJ with no obstruction on the left on 09/03. Patient states that she has also been experiencing nausea and vomiting. Patient is currently on her period. Her PMD is Dr. De La Paz. Patient denies fever, headache, chills, SOB, and dysuria. Time Seen by Provider: 10/10/18 10:39 Chief Complaint (Nursing): Back Pain History Per: Patient History/Exam Limitations: no limitations Onset/Duration Of Symptoms: Hrs Current Symptoms Are (Timing): Still Present Quality Of Discomfort: "Pain" Previous Symptoms: None Associated Symptoms: denies: Incontinence, New Weakness, New Numbness Exacerbating Factor(s): Nothing Past Medical History Reviewed: Historical Data, Nursing Documentation, Vital Signs Vital Signs: Last Vital Signs Temp 97.9 F 10/10/18 10:25 Pulse 59 L 10/10/18 11:11 Resp 16 10/10/18 11:11 BP 155/83 H 10/10/18 11:11 Pulse Ox 99 10/10/18 11:11 - Medical History PMH: Gastritis, HTN, Migraine Surgical History: No Surg Hx Family History: States: Unknown Family Hx - Social History Hx Alcohol Use: Yes (denies) Hx Substance Use: No - Immunization History Hx Tetanus Toxoid Vaccination: No Hx Influenza Vaccination: No Hx Pneumococcal Vaccination: No Review Of Systems Constitutional: Negative for: Fever, Chills, Weakness Respiratory: Negative for: Shortness of Breath Gastrointestinal: Positive for: Nausea, Vomiting, Abdominal Pain (left flank) Genitourinary: Negative for: Dysuria Neurological: Negative for: Weakness, Numbness, Headache, Dizziness Physical Exam - Physical Exam Appears: Non-toxic, Other (actively retching) Skin: Normal Color, Warm, Dry Head: Atraumatic, Normacephalic Neck: Normal ROM, Supple Chest: Symmetrical, No Deformity Cardiovascular: Rhythm Regular, No Murmur Respiratory: No Accessory Muscle Use, No Rales, No Rhonchi, No Wheezing Gastrointestinal/Abdominal: Soft, No Tenderness, Other (obese) Back: CVA Tenderness (left-sided) Extremity: No Other (pitting edema) Neurological/Psych: Oriented x3, Normal Speech, Normal Cognition ED Course And Treatment - Laboratory Results Result Diagrams: 10/10/18 11:00 10/10/18 11:00 O2 Sat by Pulse Oximetry: 99 (in RA) Medical Decision Making Medical Decision Making: Impression: 42 year old female presents to ED with complaint of left flank pain that began this morning when she woke up. Plan: Abdomen/Pelvis CT ordered for patient Labs with UA, CBC, and lipase ordered for patient Patient given Morphine IV, IV fluids, Toradol IVP, and Zofran IVP Disposition Counseled Patient/Family Regarding: Studies Performed, Diagnosis - Disposition Disposition: HOME/ ROUTINE Disposition Time: 13:46 Condition: STABLE Instructions: Flank Pain (DC), Polysubstance Abuse (DC) Forms: [employer] (Setswana) - POA Present On Arrival: None - Clinical Impression Clinical Impression: Flank pain, Substance abuse - Scribe Statement The provider has reviewed the documentation as recorded by the Scribe (Janie Ponce) All medical record entries made by the Scribe were at my direction and personally dictated by me. I have reviewed the chart and agree that the record accurately reflects my personal performance of the history, physical exam, medical decision making, and the department course for this patient. I have also personally directed, reviewed, and agree with the discharge instructions and disposition.
[2018-10-10 11:28] LABS: ALB/GLOB RATIO 1.6 (1.0-2.1); ALBUMIN 4.3 g/dL (3.5-5.0); ALT/SGPT 24 U/L (9-52); AST/SGOT 31 U/L (14-36); BLOOD UREA NITROGEN 10 mg/dL (7-17); CALCIUM 9.1 mg/dl (8.6-10.4); GFR NON-AFRICAN AMERICAN > 60; LIPASE 55 U/L (23-300)
[2018-10-10 12:27] LABS: SQUAMOUS EPITHIAL 5 /hpf (0-5); URINE BILIRUBIN NEGATIVE (NEGATIVE); URINE BLOOD 2+ (NEGATIVE); URINE CLARITY Hazy (Clear); URINE COLOR Red (YELLOW); URINE GLUCOSE (UA) NORMAL (Normal); URINE LEUKOCYTE ESTERASE TRACE Leu/uL (Negative); URINE PROTEIN 2+ mg/dL (NEGATIVE); URINE UROBILINOGEN NORMAL mg/dL (0.2-1.0)
[2018-10-10 12:28] LABS: HCG,QUALITATIVE URINE NEGATIVE (NEGATIVE)
[2018-10-10 12:37] LABS: BARBITURATES, UR NEGATIVE (NEGATIVE); BENZODIAZEPINES, UR NEGATIVE (NEGATIVE); PHENCYCLIDINE, UR NEGATIVE (NEGATIVE)
[2018-10-10 12:39] LABS: OPIATES, UR POSITIVE (NEGATIVE)
--- NOTE | 2018-10-10 13:46 | CT ---
Date of service: 10/10/2018 PROCEDURE: CT Abdomen and Pelvis without intravenous contrast HISTORY: abd pain COMPARISON: 08/21/2018 TECHNIQUE: Without contrast.. Contrast dose: Radiation dose: Total exam DLP = 563 mGy-cm. This CT exam was performed using one or more of the following dose reduction techniques: Automated exposure control, adjustment of the mA and/or kV according to patient size, and/or use of iterative reconstruction technique. FINDINGS: LOWER THORAX: Unremarkable. LIVER: Hepatic steatosis is still suggested on this non IV contrast enhanced study. No suspect dilated ducts appreciated No gross liver masses of noted GALLBLADDER AND BILE DUCTS: Unremarkable. Sludge possible PANCREAS: Unremarkable. No gross lesion or ductal dilatation. SPLEEN: Unremarkable. ADRENALS: Unremarkable. No mass. KIDNEYS AND URETERS: Again bilateral nonobstructing renal calculi are present. Prior right hydro nephrosis/hydroureter has resolved. The prior ureteral calculus having just passed into the bladder on the prior study is no longer seen. Currently no right hydroureter noted. There is interval left mild moderate intrarenal pelviectasis not appreciated as such on the prior study. The proximal left ureter is not particularly dilated. There is an interval distal left ureteral calculus present on the current study axis series 3, image 122 approximately 4 mm in size on coronal series 601, image 69 this is not seen as such on the prior study. There is interval minimal dilatation of the left ureter proximal to this interval left ureteral calculus. VASCULATURE: Unremarkable. No aortic aneurysm. No atherosclerotic calcification or mural plaque present. BOWEL: Moderate stool retention.. No obstruction. No gross mural thickening. APPENDIX: No CT signs of acute appendicitis appreciated. PERITONEUM: Unremarkable. No free fluid. No free air. LYMPH NODES: Unremarkable. No enlarged lymph nodes. BLADDER: No bladder calculi noted. Unremarkable appearing bladder. REPRODUCTIVE: Bilateral probable ovarian follicular physiologic cystic changes. BONES: No acute fracture. Inferior lumbar spondylosis. OTHER FINDINGS: None. IMPRESSION: The prior right hydronephrosis and right hydroureter has resolved. The prior calculus having just passed into the bladder/at the right ureteral vesicle junction on the prior study is no longer seen. There is interval left intrarenal pelviectasis/interval mild left hydronephrosis with primarily interval mild distal left hydro ureter-mild secondary to an interval 4 mm distal left ureteral calculus here. Other findings as above.
== END 2018-10-10 13:50 | disposition home or self-care (01) ==
LOC: C.ER 10:16
DX: F19.10 Other psychoactive substance abuse, uncomplicated (principal); R10.9 Unspecified abdominal pain; I10 Essential (primary) hypertension
CPT/HCPCS: 74176; 80053; 80324; 80345; 80346; 80349; 80353; 80358; 80361; 81001; 83690; 83992; 84703; 85025; 96361; 96374; 96375; 99285; J1885; J2270; J2405; J7030